=== PATIENT | female | born 1970 | race American Indian/Alaskan Native ===

== ENCOUNTER → 2021-08-21 | Outpatient (CLI) | payer MEDICARE, MEDICAID | END | disposition home or self-care (01) | LOC: US 09:10 | PROVIDERS: ATTEND Internal Medicine Nephrology | DX: N28.1 Cyst of kidney, acquired (principal) | CPT/HCPCS: 76770 ==

== ENCOUNTER 2023-08-04 21:30 | Emergency (ER) | payer MEDICARE, MEDICAID ==
[~2023-08-04] VITALS: Ht 160 cm; Wt 97.0 kg
[2023-08-04 21:32] VITALS: O2SAT 99
[2023-08-04 23:35] LABS: BASOPHILS % 0.6 % (0.0-2.0); EOSINOPHILS % 1.6 % (0.0-5.0); HEMATOCRIT. 39.8 % (36.0-48.0); HEMOGLOBIN. 12.8 g/dL (12.0-16.0); LYMPHOCYTES % 42.5 % (20.0-50.0); MEAN CORPUSCULAR HEMOGLOBIN 29.7 pg (28.0-32.0); MEAN CORPUSCULAR HGB CONC 32.3 g/dL (31.0-37.0); MEAN PLATELET VOLUME 9.5 fl (7.4-10.4); MONOCYTES % 9.7 % (2.0-8.0); NEUTROPHILS % 45.6 % (40.0-76.0); PLATELET 111 x1000/uL (130-400); RED BLOOD CELL COUNT 4.32 mill/uL (4.2-5.4); RED CELL DISTRIBUTION WIDTH 13.9 % (11.6-14.6); WHITE BLOOD COUNT 8.2 x1000/uL (4.5-11.0)
[2023-08-04 23:49] LABS: ACETAMINOPHEN < 2 ug/mL (10-30); ALANINE AMINOTRANSFERASE 19 IU/L (10-49); ALBUMIN 4.1 g/dL (3.2-4.8); ASPARTATE AMINOTRANSFERASE 32 IU/L (<34); BILIRUBIN TOTAL 0.3 mg/dL (0.1-1.0); CALCIUM 10.4 mg/dL (8.7-10.4); CARBON DIOXIDE 30 mEq/L (21-32); CHLORIDE 104 mEq/L (98-107); GLUCOSE 119 mg/dL (70-105); POTASSIUM 3.9 mEq/L (3.5-5.1); PROTEIN TOTAL 6.8 g/dL (6.0-8.3); SODIUM 140 mEq/L (136-145); TROPONIN I HIGH SENSITIVITY 24 ng/L (3.0-34); UREA NITROGEN BLOOD 24 mg/dL (9-23)
[2023-08-04 23:50] LABS: ETHANOL BLOOD < 10 mg/dL (<10)
[2023-08-05 00:03] LABS: CLARITY URINE CLEAR (CLEAR); COLOR URINE YELLOW (YELLOW); GLUCOSE URINE 3+ (NEGATIVE); KETONES URINE NEGATIVE (NEGATIVE); LEUKOCYTE ESTERASE URINE NEGATIVE (NEGATIVE); NITRITE URINE NEGATIVE (NEGATIVE); OCCULT BLOOD URINE NEGATIVE (NEGATIVE); PROTEIN URINE NEGATIVE (NEGATIVE); SPECIFIC GRAVITY URINE 1.009 (1.005-1.030); UROBILINOGEN URINE 0.2 E.U./dL (0.2-1.0)
[2023-08-05 00:10] LABS: *AMPHETAMINES SCREEN URINE NEGATIVE (NEGATIVE); *BARBITURATES SCREEN URINE NEGATIVE (NEGATIVE); *BENZODIAZEPINES SCREEN URINE NEGATIVE (NEGATIVE); *COCAINE SCREEN URINE NEGATIVE (NEGATIVE); CANNABINOID URINE SCREEN NEGATIVE (NEGATIVE); ECSTASY MDMA SCREEN URINE NEGATIVE (NEGATIVE); METHADONE URINE SCREEN Neg (NEGATIVE); OPIATES URINE SCREEN NEGATIVE (NEGATIVE); PHENCYCLIDINE URINE SCREEN NEGATIVE (NEGATIVE)
[2023-08-05 00:33] LABS: BACTERIA URINE NONE SEEN; RBC URINE NONE SEEN /hpf (0-2); SQUAMOUS EPITHELIAL CELL URINE FEW /lpf (RARE/1+)
[2023-08-05 02:04] LABS: TROPONIN I HIGH SENSITIVITY 24 ng/L (3.0-34)
[2023-08-05 03:30] VITALS: BP 152/78; PULSE 87; RESP 14; TEMP 98
== END 2023-08-05 03:40 | disposition home or self-care (01) ==
LOC: ER 21:30 → EDBD 21:30 → ER 08-05 03:40
DX: R44.0 Auditory hallucinations (principal); R07.9 Chest pain, unspecified; N18.9 Chronic kidney disease, unspecified; E11.9 Type 2 diabetes mellitus without complications; G20.A1 Parkinson's disease without dyskinesia, without mention of fluctuations
CPT/HCPCS: 36415; 71045; 80053; 80305; 80307; 80320; 80329; 81003; 84484; 85025; 93005; 99285; G0480

== ENCOUNTER 2025-02-01 12:39 | Inpatient (IN) | payer MEDICARE, OTHER ==
[~2025-02-01] VITALS: Ht 162.6 cm; Wt 83.5 kg
[2025-02-01 12:44] VITALS: O2SAT 95
[2025-02-01 13:13] LABS: HEMATOCRIT. 41.4 % (36.0-48.0); HEMOGLOBIN. 13.2 g/dL (12.0-16.0); MEAN PLATELET VOLUME 8.1 fl (7.4-10.4); PLATELET 203 x1000/uL (130-400); RED BLOOD CELL COUNT 4.72 mill/uL (4.2-5.4); RED CELL DISTRIBUTION WIDTH 14.5 % (11.6-14.6)
[2025-02-01 13:25] LABS: CREATININE 2.1 mg/dL (0.6-1.0)
[2025-02-01 13:26] LABS: TROPONIN I HIGH SENSITIVITY < 4 ng/L (3.0-34); UREA NITROGEN BLOOD 35 mg/dL (9-23)
[2025-02-01 13:27] LABS: ASPARTATE AMINOTRANSFERASE 12 IU/L (<34)
[2025-02-01 13:28] LABS: BILIRUBIN DIRECT < 0.1 mg/dL (<=3.0); BILIRUBIN TOTAL 0.3 mg/dL (0.1-1.0); PROTEIN TOTAL 7.2 g/dL (6.0-8.3)
[2025-02-01 13:58] LABS: INR 1.0
[2025-02-01] MEDS ORDERED: DIPHENHYDRAMINE 50MG/ML VIAL IM ONE (14:45)
[2025-02-01] MEDS ORDERED: HALOPERIDOL LACTATE 5MG/ML VIAL IM ONE (14:45)
[2025-02-01 15:02] LABS: BAND% 6.0 % (1.0-6.0); EOSINOPHILS % MANUAL 1.0 % (0.0-5.0); LYMPHOCYTES % MANUAL 25.0 % (20.0-60.0); METAMYELOCYTES % 5.0 % (0-0); MONOCYTES % MANUAL 10.0 % (2.0-8.0); NEUTROPHILS % MANUAL 53.0 % (45.0-75.0); PLATELET ESTIMATE NORMAL
[2025-02-01] MEDS ORDERED: PREDNISONE 20MG TABLET PO NR (17:45)
[2025-02-01] MEDS ORDERED: IPRATROPIUM/ALBUTEROL 0.5-3(2.5)MG/3ML NEB HHN NR (17:45)
[2025-02-01 20:00] VITALS: BP_SYST 139; BP_DIAS 52; BP_DIAS 63; PULSE 84; RESP 16; TEMP 36.4; TEMP 36.5292; O2SAT 93
[2025-02-01] MEDS ORDERED: SODIUM CHLORIDE 0.9% 1,000 ML IV SCH (21:00)
[2025-02-01] MEDS ORDERED: ACETAMINOPHEN 650MG/20.3ML UDC GT PRN (21:00)
[2025-02-01] MEDS ORDERED: CLONIDINE 0.1MG TABLET PO PRN (21:00)
[2025-02-01] MEDS ORDERED: MAGNESIUM/ALUMINUM HYDROXIDE/SIMETHICONE 30ML UDC PO PRN (21:00)
[2025-02-01] MEDS ORDERED: HYDROCODONE/ACETAMINOPHEN 5/325MG TABLET PO PRN (21:00)
[2025-02-01] MEDS: ENOXAPARIN 30MG/0.3ML SYR SUBCUT SCH (21:55)
[2025-02-01] MEDS: METOPROLOL TARTRATE 25MG TABLET PO SCH (21:55)
[2025-02-01] MEDS: BENZTROPINE MESYLATE 1MG TABLET PO NR (21:56)
[2025-02-01] MEDS: CARBIDOPA/LEVODOPA 25/100MG TABLET PO SCH (21:56)
[2025-02-01] MEDS: CEFTRIAXONE 1GM/50ML 50 ML IV SCH (22:00)
[2025-02-02] VITALS: BP 118/98; PULSE 86; RESP 16; TEMP 36.4; TEMP 36.5; O2SAT 98
[2025-02-02] MEDS: SODIUM CHLORIDE 0.45% 1,000 ML IV SCH (00:59)
[2025-02-02] MEDS: AZITHROMYCIN 500MG/250ML 250 ML IV SCH (01:52)
[2025-02-02 04:00] VITALS: BP 130/63; PULSE 83; RESP 16; TEMP 36.5
[2025-02-02 06:38] LABS: CREATININE 2.0 mg/dL (0.6-1.0)
[2025-02-02 06:39] LABS: UREA NITROGEN BLOOD 37 mg/dL (9-23)
[2025-02-02 06:41] LABS: PHOSPHORUS 2.9 mg/dL (2.5-4.9)
[2025-02-02 06:51] LABS: HEMATOCRIT. 40.1 % (36.0-48.0); HEMOGLOBIN. 12.8 g/dL (12.0-16.0); MEAN PLATELET VOLUME 8.7 fl (7.4-10.4); PLATELET 178 x1000/uL (130-400); RED BLOOD CELL COUNT 4.52 mill/uL (4.2-5.4); RED CELL DISTRIBUTION WIDTH 14.4 % (11.6-14.6)
[2025-02-02 06:58] LABS: CLARITY URINE CLEAR (CLEAR); COLOR URINE YELLOW (YELLOW); GLUCOSE URINE 3+ (NEGATIVE); KETONES URINE NEGATIVE (NEGATIVE); LEUKOCYTE ESTERASE URINE NEGATIVE (NEGATIVE); NITRITE URINE NEGATIVE (NEGATIVE); OCCULT BLOOD URINE NEGATIVE (NEGATIVE); PH URINE 7.0 (4.5-8.0); PROTEIN URINE NEGATIVE (NEGATIVE); SPECIFIC GRAVITY URINE 1.013 (1.005-1.030); UROBILINOGEN URINE 0.2 E.U./dL (0.2-1.0)
[2025-02-02 08:00] VITALS: BP 121/64; PULSE 68; RESP 16; TEMP 35.9
[2025-02-02] MEDS ORDERED: DEXTROSE 50% WATER 50ML SYRINGE IV PRN (08:15)
[2025-02-02 08:58] LABS: SQUAMOUS EPITHELIAL CELL URINE NONE SEEN /lpf (RARE/1+)
[2025-02-02 08:59] LABS: BACTERIA URINE 3+; RBC URINE NONE SEEN /hpf (0-2); WBC URINE 0-2 /hpf (0-2)
[2025-02-02] MEDS: AMLODIPINE 5MG TABLET PO SCH (09:13)
[2025-02-02] MEDS: INSULIN LISPRO 100 UNITS/ML SUBCUT SCH (09:14)
[2025-02-02] MEDS: BLOOD SUGAR DIAGNOSTIC STRIP TEST SCH (11:45)
[2025-02-02 12:00] VITALS: BP 123/66; PULSE 72; RESP 18; TEMP 36.1
[2025-02-02] MEDS: PANTOPRAZOLE 40MG DR TABLET PO SCH (13:42)
[2025-02-02 16:00] VITALS: BP_SYST 118; BP_SYST 131; BP_DIAS 70; BP_DIAS 78; PULSE 64; PULSE 74; RESP 17; RESP 18; TEMP 36.2; TEMP 36.3; O2SAT 97
[2025-02-02 18:28] LABS: LYMPHOCYTES % MANUAL 16.0 % (20.0-60.0); MONOCYTES % MANUAL 3.0 % (2.0-8.0); NEUTROPHILS % MANUAL 81.0 % (45.0-75.0); PLATELET ESTIMATE NORMAL
[2025-02-02 20:00] VITALS: BP 104/64; PULSE 67; RESP 18; TEMP 36.4; O2SAT 100
[2025-02-02] MEDS: ATORVASTATIN CALCIUM 10MG TABLET PO SCH (20:49)
[2025-02-03] VITALS: BP 115/67; PULSE 88; RESP 18; TEMP 36.5; O2SAT 96
[2025-02-03 04:00] VITALS: BP 113/70; PULSE 71; RESP 18; TEMP 36.6; O2SAT 94
[2025-02-03 08:00] VITALS: BP 106/65; PULSE 63; RESP 18; TEMP 36.6
[2025-02-03 12:00] VITALS: BP 107/61; PULSE 60; RESP 18; TEMP 36.4
[2025-02-03 16:00] VITALS: BP 99/77; PULSE 63; RESP 18; TEMP 36.4
[2025-02-03 20:00] VITALS: BP 118/59; PULSE 72; RESP 19; TEMP 36.3
[2025-02-03] MEDS: PROMETHAZINE/DEXTROMETHORPHAN 6.25-15MG/5ML PO PRN (21:08)
[2025-02-04] VITALS: BP 127/61; PULSE 75; RESP 18; TEMP 36.1; O2SAT 95
[2025-02-04 04:00] VITALS: BP 119/62; PULSE 61; RESP 17; TEMP 36.6; O2SAT 96
[2025-02-04 08:00] VITALS: BP 111/70; PULSE 77; RESP 20; TEMP 36.4; O2SAT 97
[2025-02-04 08:50] LABS: HEMATOCRIT. 37.2 % (36.0-48.0); HEMOGLOBIN. 11.8 g/dL (12.0-16.0); MEAN PLATELET VOLUME 8.4 fl (7.4-10.4); PLATELET 167 x1000/uL (130-400); RED BLOOD CELL COUNT 4.25 mill/uL (4.2-5.4); RED CELL DISTRIBUTION WIDTH 14.5 % (11.6-14.6)
[2025-02-04 09:07] LABS: CREATININE 1.8 mg/dL (0.6-1.0)
[2025-02-04 09:08] LABS: UREA NITROGEN BLOOD 33 mg/dL (9-23)
[2025-02-04 09:10] LABS: PHOSPHORUS 2.5 mg/dL (2.5-4.9)
[2025-02-04 12:00] VITALS: BP 117/73; PULSE 72; RESP 20; TEMP 36.4; O2SAT 97
[2025-02-04 16:00] VITALS: BP 129/85; PULSE 100; RESP 18; TEMP 36.4; O2SAT 97
[2025-02-04 20:00] VITALS: BP 117/82; PULSE 53; RESP 18; TEMP 36.5; O2SAT 92
[2025-02-05] VITALS: BP 110/83; PULSE 91; RESP 18; TEMP 36.6; O2SAT 92
[2025-02-05 04:00] VITALS: BP 100/50; PULSE 54; RESP 18; TEMP 36.5; O2SAT 94
[2025-02-05 08:00] VITALS: BP 119/80; PULSE 97; RESP 18; TEMP 36.9; O2SAT 92
[2025-02-05 12:00] VITALS: BP 135/86; PULSE 76; RESP 18; TEMP 37; O2SAT 92
[2025-02-05 16:00] VITALS: BP 121/76; PULSE 76; RESP 18; TEMP 37.1; O2SAT 92
[2025-02-05 16:10] LABS: EOSINOPHILS % MANUAL 2.0 % (0.0-5.0); LYMPHOCYTES % MANUAL 34.0 % (20.0-60.0); METAMYELOCYTES % 2.0 % (0-0); MONOCYTES % MANUAL 12.0 % (2.0-8.0); MYELOCYTES % 2.0 % (0-0); NEUTROPHILS % MANUAL 48.0 % (45.0-75.0); PLATELET ESTIMATE NORMAL
[2025-02-05] MEDS: ENOXAPARIN 40MG/0.4ML SYR SUBCUT SCH (17:20)
[2025-02-05 20:00] VITALS: BP 121/67; PULSE 74; RESP 17; TEMP 36.7; O2SAT 96
[2025-02-06] VITALS: BP 115/70; PULSE 72; RESP 16; TEMP 36.1; O2SAT 98
[2025-02-06 04:00] VITALS: BP 115/72; PULSE 64; RESP 16; TEMP 36.2; O2SAT 93
[2025-02-06 08:00] VITALS: BP 129/73; PULSE 78; RESP 18; TEMP 36.6; O2SAT 96
[2025-02-06] MEDS: FAMOTIDINE 20MG TABLET PO SCH (09:41)
[2025-02-06 12:00] VITALS: BP 137/93; PULSE 74; RESP 18; TEMP 36.4; O2SAT 96
[2025-02-06] MEDS: FUROSEMIDE 40MG/4ML VIAL IVP SCH (12:00)
[2025-02-06 16:00] VITALS: BP 125/75; PULSE 75; RESP 17; TEMP 36.6; O2SAT 97
[2025-02-06 20:00] VITALS: BP 113/62; PULSE 70; RESP 16; TEMP 36.3; O2SAT 97
[2025-02-07] VITALS (7 sets, daily range): BP systolic 108–129; BP diastolic 60–91; PULSE 68–85; RESP 16–18; TEMP 36.2–36.9; O2SAT 95–100
[2025-02-07 07:18] LABS: CREATININE 1.6 mg/dL (0.6-1.0); UREA NITROGEN BLOOD 27 mg/dL (9-23)
[2025-02-07 07:42] LABS: BASOPHILS % 0.4 % (0.0-2.0); EOSINOPHILS % 2.5 % (0.0-5.0); HEMATOCRIT. 37.8 % (36.0-48.0); HEMOGLOBIN. 12.2 g/dL (12.0-16.0); LYMPHOCYTES % 35.9 % (20.0-50.0); MEAN PLATELET VOLUME 8.0 fl (7.4-10.4); MONOCYTES % 10.2 % (2.0-8.0); NEUTROPHILS % 51.0 % (40.0-76.0); PLATELET 235 x1000/uL (130-400); RED BLOOD CELL COUNT 4.30 mill/uL (4.2-5.4); RED CELL DISTRIBUTION WIDTH 14.3 % (11.6-14.6)
== END 2025-02-07 22:38 | DRG 871 ==
LOC: ER 12:39 → 5WST 17:40 → ENRESERV 17:48
PROVIDERS: ADMIT Internal Medicine Nephrology; ATTEND Internal Medicine Nephrology
DX: A41.9 Sepsis, unspecified organism (principal); G93.41 Metabolic encephalopathy; N39.0 Urinary tract infection, site not specified; N17.9 Acute kidney failure, unspecified; Z20.822 Contact with and (suspected) exposure to COVID-19; J20.9 Acute bronchitis, unspecified; R53.81 Other malaise; F20.9 Schizophrenia, unspecified; N18.9 Chronic kidney disease, unspecified; I12.9 Hypertensive chronic kidney disease with stage 1 through stage 4 chronic kidney disease, or unspecified chronic kidney disease; E11.22 Type 2 diabetes mellitus with diabetic chronic kidney disease; E11.65 Type 2 diabetes mellitus with hyperglycemia; E83.52 Hypercalcemia; G20.A1 Parkinson's disease without dyskinesia, without mention of fluctuations; F02.80 Dementia in other diseases classified elsewhere, unspecified severity, without behavioral disturbance, psychotic disturbance, mood disturbance, and anxiety; D63.8 Anemia in other chronic diseases classified elsewhere; G31.89 Other specified degenerative diseases of nervous system; Z74.01 Bed confinement status; Z79.899 Other long term (current) drug therapy; Z88.8 Allergy status to other drugs, medicaments and biological substances; Z91.81 History of falling
CPT/HCPCS: 36415; 70544; 70553; 71045; 80048; 80076; 81003; 82962; 83036; 83735; 83880; 84100; 84484; 85025; 85379; 87426; 93005; 93970; 97116; 97162; 97166; 97530; 99291; A4606; J0456; J0696; J1650; J1815; J1938; J7512

== ENCOUNTER 2025-02-07 22:38 | Inpatient (IN) | payer MEDICARE, OTHER ==
[~2025-02-07] VITALS: Ht 162.6 cm; Wt 83.0 kg
[2025-02-07 22:38] VITALS: BP 143/70; PULSE 82; RESP 20; TEMP 36.1; TEMP 36.14; O2SAT 98
[2025-02-08] MEDS ORDERED: CLONIDINE 0.1MG TABLET PO PRN
[2025-02-08] MEDS ORDERED: ACETAMINOPHEN 325MG TABLET PO PRN
[2025-02-08] MEDS ORDERED: DEXTROSE 50% WATER 50ML SYRINGE IV PRN
[2025-02-08] MEDS ORDERED: MAGNESIUM/ALUMINUM HYDROXIDE/SIMETHICONE 30ML UDC PO PRN (00:15)
[2025-02-08 06:32] LABS: BASOPHILS % 0.5 % (0.0-2.0); CREATININE 1.6 mg/dL (0.6-1.0); EOSINOPHILS % 2.2 % (0.0-5.0); HEMATOCRIT. 39.2 % (36.0-48.0); HEMOGLOBIN. 12.7 g/dL (12.0-16.0); LYMPHOCYTES % 25.6 % (20.0-50.0); MEAN PLATELET VOLUME 7.8 fl (7.4-10.4); MONOCYTES % 11.3 % (2.0-8.0); NEUTROPHILS % 60.4 % (40.0-76.0); PLATELET 251 x1000/uL (130-400); RED BLOOD CELL COUNT 4.49 mill/uL (4.2-5.4); RED CELL DISTRIBUTION WIDTH 14.4 % (11.6-14.6); UREA NITROGEN BLOOD 26 mg/dL (9-23)
[2025-02-08 06:34] LABS: ASPARTATE AMINOTRANSFERASE 19 IU/L (<34); BILIRUBIN TOTAL 0.3 mg/dL (0.1-1.0); PROTEIN TOTAL 6.7 g/dL (6.0-8.3)
[2025-02-08] MEDS: BLOOD SUGAR DIAGNOSTIC STRIP TEST SCH (06:42)
[2025-02-08] MEDS: CARBIDOPA/LEVODOPA 25/100MG TABLET PO SCH (06:49)
[2025-02-08 08:00] VITALS: BP 112/68; PULSE 52; RESP 16; TEMP 36.4; O2SAT 98
[2025-02-08] MEDS: AMLODIPINE 5MG TABLET PO SCH (08:39)
[2025-02-08] MEDS: FAMOTIDINE 20MG TABLET PO SCH (08:39)
[2025-02-08] MEDS: INSULIN LISPRO 100 UNITS/ML SUBCUT SCH (08:53)
[2025-02-08] MEDS: PROMETHAZINE/DEXTROMETHORPHAN 6.25-15MG/5ML PO PRN (15:59)
[2025-02-08 20:00] VITALS: BP 133/73; PULSE 81; RESP 16; TEMP 36.2; O2SAT 90
[2025-02-08] MEDS: ATORVASTATIN CALCIUM 10MG TABLET PO SCH (22:38)
[2025-02-08] MEDS: ENOXAPARIN 40MG/0.4ML SYR SUBCUT SCH (22:39)
[2025-02-09 08:00] VITALS: BP 133/73; PULSE 71; TEMP 36.9
[2025-02-09 10:55] LABS: VITAMIN B12 SERUM 1558 pg/mL (211-911)
[2025-02-09 10:56] LABS: FOLIC ACID (FOLATE) SERUM > 20.00 ng/mL (>5.38)
[2025-02-09 11:31] LABS: BASOPHILS % 0.3 % (0.0-2.0); EOSINOPHILS % 1.7 % (0.0-5.0); HEMATOCRIT. 39.8 % (36.0-48.0); HEMOGLOBIN. 12.9 g/dL (12.0-16.0); LYMPHOCYTES % 27.7 % (20.0-50.0); MEAN PLATELET VOLUME 7.7 fl (7.4-10.4); MONOCYTES % 8.8 % (2.0-8.0); NEUTROPHILS % 61.5 % (40.0-76.0); PLATELET 269 x1000/uL (130-400); RED BLOOD CELL COUNT 4.52 mill/uL (4.2-5.4); RED CELL DISTRIBUTION WIDTH 14.3 % (11.6-14.6)
[2025-02-09 11:48] LABS: CREATININE 1.5 mg/dL (0.6-1.0); UREA NITROGEN BLOOD 23 mg/dL (9-23)
[2025-02-09 11:49] LABS: ASPARTATE AMINOTRANSFERASE 26 IU/L (<34); PROTEIN TOTAL 7.0 g/dL (6.0-8.3)
[2025-02-09 11:50] LABS: BILIRUBIN TOTAL 0.3 mg/dL (0.1-1.0)
[2025-02-09 20:00] VITALS: BP 128/73; PULSE 83; RESP 18; TEMP 36.4; O2SAT 99
[2025-02-10 08:00] VITALS: BP 108/72; PULSE 75; RESP 18; TEMP 36.3; O2SAT 98
[2025-02-10 20:00] VITALS: BP 108/61; PULSE 72; RESP 18; TEMP 36.4; O2SAT 98
[2025-02-11 08:20] VITALS: BP 119/68; PULSE 58; RESP 18; TEMP 36.3; O2SAT 95
[2025-02-11 20:00] VITALS: BP 114/66; PULSE 90; RESP 18; TEMP 36.2; O2SAT 96
[2025-02-12 08:00] VITALS: BP 110/70; PULSE 73; RESP 18; TEMP 36.4; O2SAT 98
[2025-02-12 20:00] VITALS: BP 110/67; PULSE 73; RESP 18; TEMP 36.4; O2SAT 98
[2025-02-13 08:00] VITALS: BP 126/70; PULSE 60; RESP 16; TEMP 36.4; O2SAT 100
[2025-02-13 11:15] LABS: CREATININE 1.5 mg/dL (0.6-1.0)
[2025-02-13 11:16] LABS: UREA NITROGEN BLOOD 16.0 mg/dL (9-23)
[2025-02-13 20:00] VITALS: BP_SYST 109; BP_SYST 127; BP_DIAS 60; BP_DIAS 76; PULSE 62; PULSE 78; RESP 18; TEMP 36.4; TEMP 36.7; O2SAT 99
[2025-02-13 21:44] LABS: BASOPHILS % 1.4 % (0.0-2.0); EOSINOPHILS % 3.0 % (0.0-5.0); HEMATOCRIT. 38.9 % (36.0-48.0); HEMOGLOBIN. 12.5 g/dL (12.0-16.0); LYMPHOCYTES % 33.9 % (20.0-50.0); MEAN PLATELET VOLUME 8.2 fl (7.4-10.4); MONOCYTES % 7.0 % (2.0-8.0); NEUTROPHILS % 54.7 % (40.0-76.0); PLATELET 252 x1000/uL (130-400); RED BLOOD CELL COUNT 4.43 mill/uL (4.2-5.4); RED CELL DISTRIBUTION WIDTH 14.5 % (11.6-14.6)
[2025-02-14 05:08] LABS: CLARITY URINE CLEAR (CLEAR); COLOR URINE YELLOW (YELLOW); GLUCOSE URINE 2+ (NEGATIVE); KETONES URINE NEGATIVE (NEGATIVE); LEUKOCYTE ESTERASE URINE 1+ (NEGATIVE); NITRITE URINE NEGATIVE (NEGATIVE); OCCULT BLOOD URINE NEGATIVE (NEGATIVE); PH URINE 6.5 (4.5-8.0); PROTEIN URINE NEGATIVE (NEGATIVE); SPECIFIC GRAVITY URINE 1.008 (1.005-1.030); UROBILINOGEN URINE 0.2 E.U./dL (0.2-1.0)
[2025-02-14 06:28] LABS: RBC URINE 0-2 /hpf (0-2); SQUAMOUS EPITHELIAL CELL URINE NONE SEEN /lpf (RARE/1+); WBC URINE 0-2 /hpf (0-2)
[2025-02-14 06:29] LABS: BACTERIA URINE NONE SEEN
[2025-02-14 08:00] VITALS: BP 124/71; PULSE 79; RESP 16; TEMP 36.6; O2SAT 100
[2025-02-14 20:00] VITALS: BP 142/85; PULSE 64; RESP 18; TEMP 36.5; O2SAT 96
[2025-02-15 08:00] VITALS: BP 119/80; PULSE 54; RESP 16; TEMP 36.3; O2SAT 98
[2025-02-15 20:00] VITALS: BP 129/71; PULSE 81; RESP 20; TEMP 36.3; O2SAT 100
[2025-02-16 08:00] VITALS: BP_SYST 110; BP_SYST 111; BP_DIAS 54; BP_DIAS 66; PULSE 80; PULSE 83; RESP 18; RESP 19; TEMP 36.6; TEMP 36.7; O2SAT 96; O2SAT 98
[2025-02-16 20:00] VITALS: BP 107/68; PULSE 63; RESP 19; TEMP 36.3; O2SAT 97
[2025-02-16] MEDS ORDERED: DEXTROSE 50% WATER 50ML SYRINGE IV PRN (23:15)
[2025-02-16] MEDS: INSULIN GLARGINE 100 UNITS/ML SUBCUT SCH (23:49)
[2025-02-17] MEDS: BLOOD SUGAR DIAGNOSTIC STRIP TEST SCH (06:36)
[2025-02-17] MEDS ORDERED: INSULIN LISPRO 100 UNITS/ML SUBCUT SCH (07:00)
[2025-02-17 08:00] VITALS: BP 108/68; PULSE 77; RESP 19; TEMP 36.2; O2SAT 98
[2025-02-17 08:14] LABS: CREATININE 1.3 mg/dL (0.6-1.0); UREA NITROGEN BLOOD 18 mg/dL (9-23)
[2025-02-17 08:16] LABS: PHOSPHORUS 2.3 mg/dL (2.5-4.9)
[2025-02-17] MEDS: INSULIN LISPRO (LOW DOSE) 100 UNITS/ML SUBCUT SCH (09:21)
[2025-02-17] MEDS: INSULIN LISPRO 100 UNITS/ML SUBCUT SCH (09:22)
[2025-02-17 20:00] VITALS: BP 126/56; PULSE 65; RESP 18; TEMP 36.3; O2SAT 96
[2025-02-18 08:00] VITALS: BP 118/61; PULSE 71; RESP 18; TEMP 36.3; O2SAT 98
[2025-02-18 09:14] LABS: BASOPHILS % 0.8 % (0.0-2.0); EOSINOPHILS % 4.1 % (0.0-5.0); HEMATOCRIT. 37.2 % (36.0-48.0); HEMOGLOBIN. 12.2 g/dL (12.0-16.0); LYMPHOCYTES % 41.6 % (20.0-50.0); MEAN PLATELET VOLUME 8.2 fl (7.4-10.4); MONOCYTES % 7.0 % (2.0-8.0); NEUTROPHILS % 46.5 % (40.0-76.0); PLATELET 177 x1000/uL (130-400); RED BLOOD CELL COUNT 4.28 mill/uL (4.2-5.4); RED CELL DISTRIBUTION WIDTH 14.2 % (11.6-14.6)
[2025-02-18 09:31] LABS: CREATININE 1.4 mg/dL (0.6-1.0)
[2025-02-18 09:32] LABS: UREA NITROGEN BLOOD 21 mg/dL (9-23)
[2025-02-18 09:34] LABS: PHOSPHORUS 2.6 mg/dL (2.5-4.9)
[2025-02-18 14:47] VITALS: BP 120/77; PULSE 75; RESP 18; TEMP 97.5
[2025-02-18] MEDS ORDERED: INSU100I81 SQ (15:15)
[2025-02-18] MEDS ORDERED: ATOR10TA69 MT (15:15)
[2025-02-18] MEDS ORDERED: SINCR21 PO (15:15)
[2025-02-18] MEDS ORDERED: AMLO5TAB88 PO (15:15)
[2025-02-18] MEDS ORDERED: INSU100V43 SQ (15:15)
== END 2025-02-18 17:03 | disposition home or self-care (01) | DRG 70 ==
PROVIDERS: ADMIT Physical Medicine & Rehabilitation Spinal Cord Injury Medicine; ATTEND Internal Medicine Nephrology
DX: G93.41 Metabolic encephalopathy (principal); A41.9 Sepsis, unspecified organism; R53.2 Functional quadriplegia; G91.2 (Idiopathic) normal pressure hydrocephalus; N17.9 Acute kidney failure, unspecified; N39.0 Urinary tract infection, site not specified; E11.22 Type 2 diabetes mellitus with diabetic chronic kidney disease; E11.65 Type 2 diabetes mellitus with hyperglycemia; E83.52 Hypercalcemia; F20.9 Schizophrenia, unspecified; G20.A1 Parkinson's disease without dyskinesia, without mention of fluctuations; I12.9 Hypertensive chronic kidney disease with stage 1 through stage 4 chronic kidney disease, or unspecified chronic kidney disease; N18.9 Chronic kidney disease, unspecified; R41.89 Other symptoms and signs involving cognitive functions and awareness; B96.20 Unspecified Escherichia coli [E. coli] as the cause of diseases classified elsewhere; E66.9 Obesity, unspecified; E78.00 Pure hypercholesterolemia, unspecified; F02.80 Dementia in other diseases classified elsewhere, unspecified severity, without behavioral disturbance, psychotic disturbance, mood disturbance, and anxiety; R53.81 Other malaise; D63.8 Anemia in other chronic diseases classified elsewhere; F79 Unspecified intellectual disabilities; Z68.31 Body mass index [BMI] 31.0-31.9, adult; Z74.01 Bed confinement status; Z91.81 History of falling; I25.2 Old myocardial infarction; Z83.3 Family history of diabetes mellitus; Z88.0 Allergy status to penicillin
CPT/HCPCS: 36415; 80048; 80053; 81003; 82140; 82306; 82330; 82533; 82550; 82607; 82728; 82746; 82962; 83036; 83540; 83550; 83735; 83970; 84100; 84134; 84145; 84443; 85025; 87186; 92523; 92610; 97110; 97112; 97116; 97162; 97166; 97530; 97535; 97542; A4606; J1650; J1815